=== PATIENT | female | born 1940 | race Asian ===

== ENCOUNTER 2017-09-26 21:46 | Inpatient (IN) | payer MEDICARE, BC ==
[2017-09-26] MEDS: ASPIRIN 325 MG TAB PO (23:47)
[2017-09-26 23:52] LABS: ADD MAN DIFF? NO
[2017-09-26 23:53] LABS: WHITE BLOOD COUNT 4.6 10^3/ul (4.8-10.8)
[2017-09-26 23:53] LABS: BASOPHILS % 0.4 % (0.0-2.0); EOSINOPHILS # 0.1 10^3/ul (0.0-0.5); EOSINOPHILS % 2.2 % (0.0-7.0); HEMATOCRIT 40.4 % (37.0-47.0); HEMOGLOBIN 13.9 g/dl (12.0-16.0); LYMPHOCYTES # 1.6 10^3/ul (0.8-2.9); LYMPHOCYTES % 34.9 % (15.0-51.0); MEAN CORPUSCULAR HEMOGLOBIN 34.2 pg (29.0-33.0); MEAN CORPUSCULAR HGB CONC 34.4 g/dl (32.0-37.0); MEAN CORPUSCULAR VOLUME 99.5 fl (82.0-101.0); MEAN PLATELET VOLUME 9.8 fl (7.4-10.4); MONOCYTE # 0.4 10^3/ul (0.3-0.9); MONOCYTES % 8.7 % (0.0-11.0); NEUTROPHIL # 2.5 10^3/ul (1.6-7.5); NEUTROPHILS % 53.6 % (39.0-77.0); PLATELET COUNT 233 10^3/UL (140-415); RED BLOOD COUNT 4.06 10^6/ul (4.20-5.40); RED CELL DISTRIBUTION WIDTH 11.8 % (11.5-14.5)
[2017-09-27 00:26] LABS: B-TYPE NATRIURETIC PEPTIDE 239 PG/ML (0-450); TROPONIN-I 0.037 ng/ml (0.00-0.12)
[2017-09-27 00:32] LABS: ANION GAP 16 (8-16); BLOOD UREA NITROGEN 19 mg/dl (7-20); CALCIUM 9.9 mg/dl (8.4-10.2); CARBON DIOXIDE 28 mmol/L (21-31); CHLORIDE 103 mmol/L (97-110); CREATININE 1.01 mg/dl (0.44-1.00); GLUCOSE 122 mg/dl (70-220); POTASSIUM 4.2 mmol/L (3.5-5.1); SODIUM 143 mmol/L (135-144)
[2017-09-27] MEDS: LIDOCAINE/MYLANTA 40 ML BTL PO ×2 (01:07→01:22)
[2017-09-27] MEDS: NITROGLYCERIN (SL) 0.4 MG TAB SL (01:07)
[2017-09-27] MEDS ORDERED: ONDANSETRON 4 MG INJ IV (04:30)
[2017-09-27] MEDS ORDERED: ACETAMINOPHEN 325 MG TAB PO (04:30)
[2017-09-27 06:20] LABS: CREATINE KINASE 117 IU/L (23-200)
[2017-09-27 06:25] LABS: CK INDEX 1.8; CK-MB 2.09 ng/ml (0.0-2.4); TROPONIN-I 0.045 ng/ml (0.00-0.12)
[2017-09-27] MEDS: ONDANSETRON (ODT) 4 MG TAB ODT (08:48)
[2017-09-27] MEDS: AZITHROMYCIN 250 MG TAB PO (11:30)
[2017-09-27 11:42] LABS: CREATINE KINASE 90 IU/L (23-200)
[2017-09-27 11:50] LABS: CK INDEX 1.8; CK-MB 1.63 ng/ml (0.0-2.4)
[2017-09-27] MEDS: BACLOFEN 10 MG TAB PO ×2 (15:19→20:47)
[2017-09-27] MEDS: DOCUSATE SODIUM 100 MG CAP PO (15:19)
[2017-09-27 17:32] LABS: TROPONIN-I 0.037 ng/ml (0.00-0.12)
[2017-09-27] MEDS: RANOLAZINE (SR) 500 MG TAB PO (20:48)
[2017-09-27] MEDS: ZOLPIDEM 5 MG TAB PO (22:01)
[2017-09-28 01:16] LABS: TROPONIN-I 0.046 ng/ml (0.00-0.12)
[2017-09-28] MEDS: PANTOPRAZOLE (EC) 40 MG TAB PO (05:47)
[2017-09-28 06:50] LABS: CHOLESTEROL 195 mg/dl (100-200)
[2017-09-28 06:50] LABS: HDL CHOLESTEROL 93 mg/dl (33-92); LDL CHOLESTEROL,CALCULATED 78 mg/dl
[2017-09-28 07:06] LABS: TRIGLYCERIDES 118 mg/dl (0-149)
[2017-09-28 07:32] LABS: ANION GAP 14 (8-16); BLOOD UREA NITROGEN 19 mg/dl (7-20); CALCIUM 9.2 mg/dl (8.4-10.2); CARBON DIOXIDE 26 mmol/L (21-31); CHLORIDE 109 mmol/L (97-110); CREATININE 0.95 mg/dl (0.44-1.00); GLUCOSE 110 mg/dl (70-220); POTASSIUM 3.9 mmol/L (3.5-5.1); SODIUM 145 mmol/L (135-144)
[2017-09-28] MEDS: DOCUSATE SODIUM 100 MG CAP PO (08:13)
[2017-09-28] MEDS: ASPIRIN (EC) 81 MG TAB PO (08:13)
[2017-09-28] MEDS: RANOLAZINE (SR) 500 MG TAB PO (08:13)
[2017-09-28] MEDS: BACLOFEN 10 MG TAB PO (08:13)
[2017-09-28] MEDS: LOSARTAN 25 MG TAB PO (08:14)
[2017-09-28] MEDS: FISH OIL 1,000 MG CAP PO (09:31)
[2017-09-28] MEDS: CLOPIDOGREL 75 MG TAB PO (09:31)
[2017-09-28] MEDS: ISOSORBIDE MONONITRATE(SR)60 MG TAB PO (09:32)
[2017-09-28] MEDS: AMLODIPINE 2.5 MG TAB PO (09:32)
== END 2017-09-28 19:10 | disposition home or self-care (01) | DRG 313 ==
LOC: E/R 21:46 → MS3 09-27 04:11
DX: R07.9 Chest pain, unspecified (principal); D64.9 Anemia, unspecified; I12.9 Hypertensive chronic kidney disease with stage 1 through stage 4 chronic kidney disease, or unspecified chronic kidney disease; N18.1 Chronic kidney disease, stage 1; E78.5 Hyperlipidemia, unspecified; E66.9 Obesity, unspecified; Z68.23 Body mass index [BMI] 23.0-23.9, adult; Z79.82 Long term (current) use of aspirin; Z95.1 Presence of aortocoronary bypass graft
CPT/HCPCS: 36415; 71045; 80048; 80061; 82550; 82553; 83880; 84484; 85025; 93005; 93306; 99285-25

== ENCOUNTER 2017-12-01 15:55 | Emergency (ER) | payer MEDICARE, BC ==
[2017-12-01 17:06] LABS: ADD MAN DIFF? NO
[2017-12-01 17:09] LABS: BASOPHILS % 0.4 % (0.0-2.0); EOSINOPHILS # 0.1 10^3/ul (0.0-0.5); EOSINOPHILS % 1.8 % (0.0-7.0); HEMATOCRIT 38.4 % (37.0-47.0); HEMOGLOBIN 13.2 g/dl (12.0-16.0); LYMPHOCYTES # 1.5 10^3/ul (0.8-2.9); LYMPHOCYTES % 27.2 % (15.0-51.0); MEAN CORPUSCULAR HEMOGLOBIN 34.6 pg (29.0-33.0); MEAN CORPUSCULAR HGB CONC 34.4 g/dl (32.0-37.0); MEAN CORPUSCULAR VOLUME 100.8 fl (82.0-101.0); MEAN PLATELET VOLUME 10.1 fl (7.4-10.4); MONOCYTE # 0.5 10^3/ul (0.3-0.9); MONOCYTES % 8.8 % (0.0-11.0); NEUTROPHIL # 3.5 10^3/ul (1.6-7.5); NEUTROPHILS % 61.6 % (39.0-77.0); PLATELET COUNT 234 10^3/UL (140-415); RED BLOOD COUNT 3.81 10^6/ul (4.20-5.40); RED CELL DISTRIBUTION WIDTH 11.9 % (11.5-14.5)
[2017-12-01 17:09] LABS: WHITE BLOOD COUNT 5.7 10^3/ul (4.8-10.8)
[2017-12-01 17:23] LABS: INR 0.89; PROTIME 12.1 Sec (11.9-14.9); PT RATIO 0.9
[2017-12-01 17:24] LABS: PARTIAL THROMBOPLASTIN TIME 30.4 Sec (25.0-35.0)
[2017-12-01 17:25] LABS: ANION GAP 17 (8-16); BLOOD UREA NITROGEN 22 mg/dl (7-20); CALCIUM 9.3 mg/dl (8.4-10.2); CARBON DIOXIDE 24 mmol/L (21-31); CHLORIDE 106 mmol/L (97-110); GLUCOSE 144 mg/dl (70-220); POTASSIUM 4.1 mmol/L (3.5-5.1); SODIUM 143 mmol/L (135-144)
[2017-12-01 20:11] LABS: URINE BLOOD (Dip) POC Negative (NEGATIVE); URINE GLUCOSE (Dip) POC Negative (NEGATIVE); URINE KETONES (Dip) POC Negative (NEGATIVE); URINE LEUKOCYTE EST (Dip) POC Negative (NEGATIVE); URINE NITRITE (Dip) POC Negative (NEGATIVE); URINE TOTAL PROTEIN POC Negative (NEGATIVE)
== END 2017-12-01 20:45 | disposition home or self-care (01) ==
LOC: E/R 15:55
DX: R20.2 Paresthesia of skin (principal); R32 Unspecified urinary incontinence; I10 Essential (primary) hypertension; I25.10 Atherosclerotic heart disease of native coronary artery without angina pectoris; R40.2142 Coma scale, eyes open, spontaneous, at arrival to emergency department; R40.2252 Coma scale, best verbal response, oriented, at arrival to emergency department; R40.2362 Coma scale, best motor response, obeys commands, at arrival to emergency department; Z95.1 Presence of aortocoronary bypass graft; Z79.82 Long term (current) use of aspirin
CPT/HCPCS: 36415; 70450; 72146; 72148; 80048; 81003; 85025; 85610; 85730; 99285-25

== ENCOUNTER 2018-02-16 19:28 | Emergency (ER) | payer MEDICARE, BC ==
[2018-02-16 20:08] LABS: ADD MAN DIFF? NO
[2018-02-16 20:16] LABS: WHITE BLOOD COUNT 4.7 10^3/ul (4.8-10.8)
[2018-02-16 20:16] LABS: BASOPHILS % 0.6 % (0.0-2.0); EOSINOPHILS % 0.9 % (0.0-7.0); HEMATOCRIT 40.4 % (37.0-47.0); HEMOGLOBIN 13.6 g/dl (12.0-16.0); LYMPHOCYTES # 1.4 10^3/ul (0.8-2.9); LYMPHOCYTES % 30.1 % (15.0-51.0); MEAN CORPUSCULAR HEMOGLOBIN 34.4 pg (29.0-33.0); MEAN CORPUSCULAR HGB CONC 33.7 g/dl (32.0-37.0); MEAN CORPUSCULAR VOLUME 102.3 fl (82.0-101.0); MEAN PLATELET VOLUME 9.5 fl (7.4-10.4); MONOCYTE # 0.4 10^3/ul (0.3-0.9); MONOCYTES % 7.7 % (0.0-11.0); NEUTROPHIL # 2.8 10^3/ul (1.6-7.5); NEUTROPHILS % 60.5 % (39.0-77.0); PLATELET COUNT 235 10^3/UL (140-415); RED BLOOD COUNT 3.95 10^6/ul (4.20-5.40); RED CELL DISTRIBUTION WIDTH 11.7 % (11.5-14.5)
[2018-02-16] MEDS: LIDOCAINE/MYLANTA 40 ML BTL PO (20:27)
[2018-02-16] MEDS: ASPIRIN 325 MG TAB PO (20:27)
[2018-02-16 20:34] LABS: ANION GAP 14 (8-16); BLOOD UREA NITROGEN 18 mg/dl (7-20); CALCIUM 9.6 mg/dl (8.4-10.2); CARBON DIOXIDE 29 mmol/L (21-31); CHLORIDE 103 mmol/L (97-110); CREATININE 1.01 mg/dl (0.44-1.00); GLUCOSE 122 mg/dl (70-220); POTASSIUM 4.3 mmol/L (3.5-5.1); SODIUM 142 mmol/L (135-144)
[2018-02-16 20:46] LABS: B-TYPE NATRIURETIC PEPTIDE 102 PG/ML (0-450); TROPONIN-I 0.017 ng/ml (0.000-0.120)
[2018-02-16 23:17] LABS: URINE BLOOD (Dip) POC Negative (NEGATIVE); URINE GLUCOSE (Dip) POC Negative (NEGATIVE); URINE KETONES (Dip) POC Negative (NEGATIVE); URINE LEUKOCYTE EST (Dip) POC Negative (NEGATIVE); URINE NITRITE (Dip) POC Negative (NEGATIVE); URINE TOTAL PROTEIN POC Negative (NEGATIVE)
[2018-02-17] MEDS: morphine 4 MG/ML VIAL IV (00:22)
[2018-02-17] MEDS: GABAPENTIN 300 MG CAP PO (00:59)
== END 2018-02-17 01:20 | disposition home or self-care (01) ==
LOC: E/R 02-17 01:20
DX: G62.9 Polyneuropathy, unspecified (principal); R06.00 Dyspnea, unspecified; I25.10 Atherosclerotic heart disease of native coronary artery without angina pectoris; I10 Essential (primary) hypertension; Z79.01 Long term (current) use of anticoagulants; Z79.82 Long term (current) use of aspirin; Z95.1 Presence of aortocoronary bypass graft
CPT/HCPCS: 36415; 71045; 80048; 81003; 83880; 84484; 85025; 93005; 99285-25

== ENCOUNTER 2018-10-11 13:49 | Emergency (ER) | payer MEDICARE, BC ==
[2018-10-11 14:58] LABS: ADD MAN DIFF? NO
[2018-10-11 15:00] LABS: BASOPHILS % 0.5 % (0.0-2.0); EOSINOPHILS # 0.1 10^3/ul (0.0-0.5); EOSINOPHILS % 1.8 % (0.0-7.0); HEMATOCRIT 36.4 % (37.0-47.0); LYMPHOCYTES # 1.3 10^3/ul (0.8-2.9); LYMPHOCYTES % 28.6 % (15.0-51.0); MEAN CORPUSCULAR HEMOGLOBIN 34.4 pg (29.0-33.0); MEAN CORPUSCULAR VOLUME 104.3 fl (82.0-101.0); MEAN PLATELET VOLUME 9.8 fl (7.4-10.4); MONOCYTE # 0.4 10^3/ul (0.3-0.9); NEUTROPHIL # 2.7 10^3/ul (1.6-7.5); NEUTROPHILS % 60.9 % (39.0-77.0); PLATELET COUNT 210 10^3/UL (140-415); RED BLOOD COUNT 3.49 10^6/ul (4.20-5.40)
[2018-10-11 15:00] LABS: WHITE BLOOD COUNT 4.4 10^3/ul (4.8-10.8)
[2018-10-11] MEDS: morphine 2 MG INJ IV (15:01)
[2018-10-11] MEDS: ONDANSETRON 4 MG INJ IV (15:01)
[2018-10-11] MEDS: SOD CHLORIDE 0.9% 1,000 ML IV (15:01)
[2018-10-11 15:04] LABS: ADD UMIC NO; UR ASCORBIC ACID NEGATIVE (NEGATIVE); UR BILIRUBIN (Dip) NEGATIVE (NEGATIVE); UR BLOOD (Dip) NEGATIVE (NEGATIVE); UR CLARITY CLEAR (CLEAR); UR COLOR YELLOW (YELLOW); UR GLUCOSE (Dip) NEGATIVE (NEGATIVE); UR KETONES (Dip) NEGATIVE (NEGATIVE); UR LEUKOCYTE ESTERASE (Dip) NEGATIVE Leu/ul (NEGATIVE); UR NITRITE (Dip) NEGATIVE (NEGATIVE); UR TOTAL PROTEIN (Dip) NEGATIVE (NEGATIVE); UR UROBILINOGEN (Dip) NEGATIVE (NEGATIVE)
[2018-10-11 15:18] LABS: ALANINE AMINOTRANSFERASE 8 IU/L (13-69); ALBUMIN 4.3 g/dl (3.3-4.9); ALBUMIN/GLOBULIN RATIO 1.43; ALKALINE PHOSPHATASE 76 IU/L (42-121); AMYLASE 103 U/L (11-123); ANION GAP 7 (5-13); ASPARTATE AMINO TRANSFERASE 20 IU/L (15-46); BILIRUBIN,INDIRECT 0.2 mg/dl (0-1.1); BILIRUBIN,TOTAL 0.2 mg/dl (0.2-1.3); BLOOD UREA NITROGEN 20 mg/dl (7-20); CALCIUM 9.3 mg/dl (8.4-10.2); CARBON DIOXIDE 29 mmol/L (21-31); CHLORIDE 106 mmol/L (97-110); CREATININE 0.82 mg/dl (0.44-1.00); GLUCOSE 113 mg/dl (70-220); LIPASE 67 U/L (23-300); POTASSIUM 4.2 mmol/L (3.5-5.1); SODIUM 142 mmol/L (135-144); TOTAL PROTEIN 7.3 g/dl (6.1-8.1)
[2018-10-11 15:19] LABS: INR 0.89; PROTIME 12.1 Sec (11.9-14.9); PT RATIO 0.9
[2018-10-11 15:20] LABS: PARTIAL THROMBOPLASTIN TIME 30.3 Sec (23.0-35.0)
[2018-10-11 15:30] LABS: TROPONIN-I 0.014 ng/ml (0.000-0.120)
[2018-10-11] MEDS: KETOROLAC 15 MG INJ IV (17:44)
[2018-10-11] MEDS ORDERED: SOD CHLORIDE 0.9% 1,000 ML IV (18:43)
== END 2018-10-11 19:43 | disposition home or self-care (01) ==
LOC: E/R 13:49
DX: K80.80 Other cholelithiasis without obstruction (principal); I10 Essential (primary) hypertension; I25.10 Atherosclerotic heart disease of native coronary artery without angina pectoris; Z79.01 Long term (current) use of anticoagulants; Z79.82 Long term (current) use of aspirin; Z95.1 Presence of aortocoronary bypass graft
CPT/HCPCS: 74176; 80053; 81003; 82150; 83690; 84484; 85025; 85610; 85730; 87086; 93005; 96361; 96374; 99285-25

== ENCOUNTER 2018-11-08 22:22 | Inpatient (IN) | payer MEDICARE, BC ==
[2018-11-08] MEDS: ASPIRIN 325 MG TAB PO (23:05)
[2018-11-08 23:16] LABS: ADD MAN DIFF? NO
[2018-11-08 23:18] LABS: WHITE BLOOD COUNT 4.5 10^3/ul (4.8-10.8)
[2018-11-08 23:18] LABS: BASOPHILS % 0.4 % (0.0-2.0); EOSINOPHILS # 0.1 10^3/ul (0.0-0.5); HEMATOCRIT 37.5 % (37.0-47.0); HEMOGLOBIN 12.6 g/dl (12.0-16.0); LYMPHOCYTES # 1.6 10^3/ul (0.8-2.9); LYMPHOCYTES % 34.6 % (15.0-51.0); MEAN CORPUSCULAR HEMOGLOBIN 34.3 pg (29.0-33.0); MEAN CORPUSCULAR HGB CONC 33.6 g/dl (32.0-37.0); MEAN CORPUSCULAR VOLUME 102.2 fl (82.0-101.0); MEAN PLATELET VOLUME 9.8 fl (7.4-10.4); MONOCYTE # 0.4 10^3/ul (0.3-0.9); MONOCYTES % 9.1 % (0.0-11.0); NEUTROPHIL # 2.4 10^3/ul (1.6-7.5); NEUTROPHILS % 53.7 % (39.0-77.0); PLATELET COUNT 211 10^3/UL (140-415); RED BLOOD COUNT 3.67 10^6/ul (4.20-5.40); RED CELL DISTRIBUTION WIDTH 11.8 % (11.5-14.5)
[2018-11-08 23:37] LABS: ALANINE AMINOTRANSFERASE 14 IU/L (13-69); ALBUMIN 4.5 g/dl (3.3-4.9); ALBUMIN/GLOBULIN RATIO 1.45; ALKALINE PHOSPHATASE 85 IU/L (42-121); ANION GAP 9 (5-13); ASPARTATE AMINO TRANSFERASE 21 IU/L (15-46); BILIRUBIN,INDIRECT 0.5 mg/dl (0-1.1); BILIRUBIN,TOTAL 0.5 mg/dl (0.2-1.3); BLOOD UREA NITROGEN 20 mg/dl (7-20); CALCIUM 9.6 mg/dl (8.4-10.2); CARBON DIOXIDE 27 mmol/L (21-31); CHLORIDE 106 mmol/L (97-110); CREATININE 0.84 mg/dl (0.44-1.00); GLUCOSE 107 mg/dl (70-220); POTASSIUM 3.9 mmol/L (3.5-5.1); SODIUM 142 mmol/L (135-144); TOTAL PROTEIN 7.6 g/dl (6.1-8.1)
[2018-11-08 23:48] LABS: TROPONIN-I 0.016 ng/ml (0.000-0.120)
[2018-11-09 00:29] LABS: B-TYPE NATRIURETIC PEPTIDE 97 PG/ML (0-450)
[2018-11-09] MEDS ORDERED: morphine 2 MG INJ IV (04:30)
[2018-11-09] MEDS ORDERED: ACETAMINOPHEN 325 MG TAB PO (04:30)
[2018-11-09] MEDS: NITROGLYCERIN (SL) 0.4 MG TAB SL ×4 (04:42→21:40)
[2018-11-09 06:50] LABS: TROPONIN-I 0.024 ng/ml (0.000-0.120)
[2018-11-09] MEDS: PANTOPRAZOLE (EC) 40 MG TAB PO (07:05)
[2018-11-09] MEDS: FISH OIL 1,000 MG CAP PO (08:39)
[2018-11-09] MEDS: GABAPENTIN 300 MG CAP PO ×3 (08:39→21:14)
[2018-11-09] MEDS: FERROUS SULFATE (EC) 325 MG TAB PO (08:39)
[2018-11-09] MEDS: ASPIRIN (EC) 81 MG TAB PO (08:39)
[2018-11-09] MEDS: CLOPIDOGREL 75 MG TAB PO (08:40)
[2018-11-09] MEDS: DOCUSATE SODIUM 100 MG CAP PO (08:40)
[2018-11-09] MEDS: ISOSORBIDE MONONITRATE(SR)60 MG TAB PO (08:40)
[2018-11-09] MEDS: RANOLAZINE (SR) 500 MG TAB PO ×2 (08:40→21:15)
[2018-11-09] MEDS: BACLOFEN 10 MG TAB PO (08:40)
[2018-11-09] MEDS: LOSARTAN 25 MG TAB PO (08:41)
[2018-11-09] MEDS ORDERED: NON-FORMULARY/PATIENT OWN MED (Omega-3 Fatty Acids/Fish Oil (Fish Oil 1,000 mg Capsule) 1 PO (09:00)
[2018-11-09 11:30] LABS: TROPONIN-I 0.024 ng/ml (0.000-0.120)
[2018-11-09] MEDS: ATORVASTATIN 40 MG TAB PO (21:14)
[2018-11-09] MEDS: ZOLPIDEM 5 MG TAB PO (22:45)
[2018-11-10] MEDS: PANTOPRAZOLE (EC) 40 MG TAB PO (05:50)
[2018-11-10 06:08] LABS: ADD MAN DIFF? NO
[2018-11-10 06:16] LABS: WHITE BLOOD COUNT 3.9 10^3/ul (4.8-10.8)
[2018-11-10 06:16] LABS: BASOPHILS % 0.8 % (0.0-2.0); EOSINOPHILS # 0.1 10^3/ul (0.0-0.5); HEMATOCRIT 37.2 % (37.0-47.0); HEMOGLOBIN 12.5 g/dl (12.0-16.0); LYMPHOCYTES # 1.6 10^3/ul (0.8-2.9); LYMPHOCYTES % 39.5 % (15.0-51.0); MEAN CORPUSCULAR HEMOGLOBIN 34.1 pg (29.0-33.0); MEAN CORPUSCULAR HGB CONC 33.6 g/dl (32.0-37.0); MEAN CORPUSCULAR VOLUME 101.4 fl (82.0-101.0); MEAN PLATELET VOLUME 10.3 fl (7.4-10.4); MONOCYTE # 0.4 10^3/ul (0.3-0.9); MONOCYTES % 9.7 % (0.0-11.0); NEUTROPHIL # 1.9 10^3/ul (1.6-7.5); NEUTROPHILS % 47.7 % (39.0-77.0); PLATELET COUNT 203 10^3/UL (140-415); RED BLOOD COUNT 3.67 10^6/ul (4.20-5.40); RED CELL DISTRIBUTION WIDTH 11.8 % (11.5-14.5)
[2018-11-10 06:39] LABS: ALANINE AMINOTRANSFERASE 14 IU/L (13-69); ALBUMIN 3.9 g/dl (3.3-4.9); ALBUMIN/GLOBULIN RATIO 1.39; ALKALINE PHOSPHATASE 71 IU/L (42-121); ANION GAP 7 (5-13); ASPARTATE AMINO TRANSFERASE 19 IU/L (15-46); BILIRUBIN,INDIRECT 0.4 mg/dl (0-1.1); BILIRUBIN,TOTAL 0.4 mg/dl (0.2-1.3); BLOOD UREA NITROGEN 20 mg/dl (7-20); CALCIUM 9.3 mg/dl (8.4-10.2); CARBON DIOXIDE 29 mmol/L (21-31); CHLORIDE 106 mmol/L (97-110); CHOL/HDL RATIO 2.4 RATIO; CHOLESTEROL 211 mg/dl (100-200); CREATININE 0.83 mg/dl (0.44-1.00); GLUCOSE 101 mg/dl (70-220); HDL CHOLESTEROL 85 mg/dl (33-92); LDL CHOLESTEROL,CALCULATED 99 mg/dl; POTASSIUM 4.1 mmol/L (3.5-5.1); SODIUM 142 mmol/L (135-144); TOTAL PROTEIN 6.7 g/dl (6.1-8.1); TRIGLYCERIDES 136 mg/dl (0-149)
[2018-11-10] MEDS: ASPIRIN (EC) 81 MG TAB PO (08:20)
[2018-11-10] MEDS: GABAPENTIN 300 MG CAP PO ×3 (08:20→20:55)
[2018-11-10] MEDS: FISH OIL 1,000 MG CAP PO (08:20)
[2018-11-10] MEDS: DOCUSATE SODIUM 100 MG CAP PO (08:20)
[2018-11-10] MEDS: ISOSORBIDE MONONITRATE(SR)60 MG TAB PO (08:21)
[2018-11-10] MEDS: BACLOFEN 10 MG TAB PO (08:21)
[2018-11-10] MEDS: FERROUS SULFATE (EC) 325 MG TAB PO (08:21)
[2018-11-10] MEDS: CLOPIDOGREL 75 MG TAB PO (08:21)
[2018-11-10] MEDS: RANOLAZINE (SR) 500 MG TAB PO ×2 (08:26→20:55)
[2018-11-10] MEDS: LOSARTAN 25 MG TAB PO (09:00)
[2018-11-10 14:01] LABS: TROPONIN-I 0.013 ng/ml (0.000-0.120)
[2018-11-10] MEDS: ATORVASTATIN 40 MG TAB PO (20:55)
[2018-11-10] MEDS: ZOLPIDEM 5 MG TAB PO (22:41)
[2018-11-11] MEDS: PANTOPRAZOLE (EC) 40 MG TAB PO (06:51)
[2018-11-11] MEDS: REGADENOSON 0.4 MG/5 ML SYG (10:15)
[2018-11-11] MEDS: BACLOFEN 10 MG TAB PO (11:03)
[2018-11-11] MEDS: DOCUSATE SODIUM 100 MG CAP PO (11:03)
[2018-11-11] MEDS: FERROUS SULFATE (EC) 325 MG TAB PO (11:04)
[2018-11-11] MEDS: CLOPIDOGREL 75 MG TAB PO (11:04)
[2018-11-11] MEDS: LOSARTAN 25 MG TAB PO (11:04)
[2018-11-11] MEDS: GABAPENTIN 300 MG CAP PO ×2 (11:04→15:03)
[2018-11-11] MEDS: RANOLAZINE (SR) 500 MG TAB PO (11:04)
[2018-11-11] MEDS: ISOSORBIDE MONONITRATE(SR)60 MG TAB PO (11:04)
[2018-11-11] MEDS: FISH OIL 1,000 MG CAP PO (11:04)
[2018-11-11] MEDS: ASPIRIN (EC) 81 MG TAB PO (11:04)
[2018-11-11] MEDS: IBUPROFEN 600 MG TAB PO (15:06)
== END 2018-11-11 16:49 | disposition home or self-care (01) | DRG 313 ==
LOC: E/R 22:22 → 6WM 11-09 00:31
DX: R07.89 Other chest pain (principal); I25.10 Atherosclerotic heart disease of native coronary artery without angina pectoris; G62.9 Polyneuropathy, unspecified; Z95.1 Presence of aortocoronary bypass graft; I10 Essential (primary) hypertension; E78.5 Hyperlipidemia, unspecified; Z79.82 Long term (current) use of aspirin; Z79.02 Long term (current) use of antithrombotics/antiplatelets; Z95.5 Presence of coronary angioplasty implant and graft
CPT/HCPCS: 36415; 71045; 78452; 80053; 80061; 83880; 84484; 85025; 87081; 93005; 93017; 93306; 99285-25

== ENCOUNTER 2019-03-07 12:20 | Emergency (ER) | payer MEDICARE, BC ==
[2019-03-07 13:21] LABS: ADD MAN DIFF? NO
[2019-03-07 13:23] LABS: WHITE BLOOD COUNT 3.9 10^3/ul (4.8-10.8)
[2019-03-07 13:23] LABS: EOSINOPHILS # 0.1 10^3/ul (0.0-0.5); EOSINOPHILS % 1.8 % (0.0-7.0); HEMATOCRIT 36.5 % (37.0-47.0); HEMOGLOBIN 12.4 g/dl (12.0-16.0); LYMPHOCYTES # 1.3 10^3/ul (0.8-2.9); LYMPHOCYTES % 33.5 % (15.0-51.0); MEAN CORPUSCULAR HEMOGLOBIN 34.5 pg (29.0-33.0); MEAN CORPUSCULAR VOLUME 101.7 fl (82.0-101.0); MEAN PLATELET VOLUME 9.8 fl (7.4-10.4); MONOCYTE # 0.4 10^3/ul (0.3-0.9); NEUTROPHIL # 2.1 10^3/ul (1.6-7.5); NEUTROPHILS % 54.4 % (39.0-77.0); PLATELET COUNT 217 10^3/UL (140-415); RED BLOOD COUNT 3.59 10^6/ul (4.20-5.40); RED CELL DISTRIBUTION WIDTH 11.8 % (11.5-14.5)
[2019-03-07 13:43] LABS: ANION GAP 7 (5-13); BLOOD UREA NITROGEN 18 mg/dl (7-20); CALCIUM 9.6 mg/dl (8.4-10.2); CARBON DIOXIDE 28 mmol/L (21-31); CHLORIDE 108 mmol/L (97-110); CREATININE 0.91 mg/dl (0.44-1.00); GLUCOSE 115 mg/dl (70-220); POTASSIUM 4.3 mmol/L (3.5-5.1); SODIUM 143 mmol/L (135-144)
[2019-03-07 13:55] LABS: TROPONIN-I 0.013 ng/ml (0.000-0.120)
[2019-03-07] MEDS: NITROGLYCERIN (SL) 0.4 MG TAB SL (14:17)
[2019-03-07 16:20] LABS: TROPONIN-I 0.012 ng/ml (0.000-0.120)
== END 2019-03-07 16:50 | disposition home or self-care (01) ==
LOC: E/R 12:20
DX: R07.9 Chest pain, unspecified (principal); R40.2142 Coma scale, eyes open, spontaneous, at arrival to emergency department; I25.810 Atherosclerosis of coronary artery bypass graft(s) without angina pectoris; I10 Essential (primary) hypertension
CPT/HCPCS: 71045; 80048; 84484; 85025; 93005; 99285-25

== ENCOUNTER 2019-05-05 16:08 | Emergency (ER) | payer MEDICARE, BC ==
[2019-05-05] MEDS: SOD CHLORIDE 0.9% 500 ML IV (17:41)
[2019-05-05] MEDS: ONDANSETRON 4 MG INJ IV (17:41)
[2019-05-05] MEDS: CEFTRIAXONE 1 GM/50 ML (PMX) 50 ML IVPB (18:31)
== END 2019-05-05 19:56 | disposition home or self-care (01) ==
LOC: E/R 16:08
DX: N30.00 Acute cystitis without hematuria (principal); I25.10 Atherosclerotic heart disease of native coronary artery without angina pectoris; N18.9 Chronic kidney disease, unspecified; I12.9 Hypertensive chronic kidney disease with stage 1 through stage 4 chronic kidney disease, or unspecified chronic kidney disease; E66.9 Obesity, unspecified; Z79.01 Long term (current) use of anticoagulants; Z95.1 Presence of aortocoronary bypass graft; Z98.61 Coronary angioplasty status
CPT/HCPCS: 36415; 71045; 80053; 81001; 83690; 84484; 85025; 93005; 96365; 96375; 99285-25